=== PATIENT | female | born 1995 | race Caucasian/White ===

== ENCOUNTER 2017-01-26 16:39 | Emergency (ER) | payer OTHER ==
[~2017-01-26] VITALS: Ht 170.2 cm; Wt 70.9 kg
[~2017-01-26 16:39] MED LIST: ASCA500 PO; BIOT1TAB7 PO; CYAN10005 PO; IBUP-1050 PO
[2017-01-26 17:09] VITALS: TEMP 36.9; Ht 170.2 cm; Wt 70.9 kg
--- NOTE | 2017-01-26 17:34 | EMERGENCY ROOM VISIT NOTE ---
ED Visit Note First contact with patient: 17:28 CHIEF COMPLAINT: Foot pain HISTORY OF PRESENT ILLNESS: This 21-year-old female patient presents to the emergency department ambulatory complaining of swelling and pain in the left foot at rest and worse with weight bearing. The patient was jumping up and down 2 days ago and landed on her foot in a wrong position. The patient rates the pain as sharp and 3/10. The patient has no relief of the pain. The patient is able to walk. No numbness or weakness. No ankle pain. There are no lacerations of the foot. The patient is able to move all of their toes and their ankle without pain. Patient denies previous injury to this foot. REVIEW OF SYSTEMS: GENERAL: A 6 system review of systems was completed with positives and pertinent negatives in the HPI. ALLERGIES: No known drug allergies MEDICATIONS: None PMH: Hyperparathyroidism SOCIAL HISTORY: The patient is a student. PHYSICAL EXAM: Vital Signs: Reviewed Nurse's notes, vital signs stable. GENERAL : This is a 21-year-old female, in no acute distress, but appears in pain, well- developed, well-nourished. MUSCULOSKELETAL: There is no visual deformity of the left foot. There is no erythema but moderate ecchymosis. There is no warmth. There is tenderness and swelling over the dorsal aspect of the left foot. The range of motion of the foot is mildly limited secondary to pain. There is no tenderness over the plantar fascia. Dorsi flexion 5/5 and Plantar flexion 5/5. The skin is intact and there are no lacerations or puncture wounds. Dorsalis pedis pulse 2+. There is mild tenderness to palpation to the lateral malleolus. There is no obvious ankle deformity or significant edema. Capillary refill less than 2 seconds. EMERGENCY DEPARTMENT COURSE: I examined the patient. An X-ray of the left foot was reviewed by myself and radiology and reveals fifth metatarsal fracture. The patient was placed in a post-op shoe and instructed on the use of crutches. She was encouraged to contact orthopedics to schedule a follow-up appointment for further evaluation and management. The patient was discharged home in good condition. L ANKLE MIN 3 VIEWS ROUTINE, L FOOT MIN 3 VIEWS ROUTINE HISTORY: 21 years-old Female left ankle injury, pain acute left foot and ankle pain status post injury COMPARISON: None available TECHNIQUE: 3 views of the left foot and 3 views of left ankle FINDINGS: ANKLE: No acute fracture, dislocation or significant degenerative changes. Mild anterior soft tissue swelling. FOOT: There is an acute transverse fracture of the distal metaphyseal fifth metatarsal with apex lateral angulation of 13 degrees. No significant displacement. No intra-articular extension. Mild associated soft tissue swelling. IMPRESSION: 1. Acute mildly angulated fracture of the distal metaphyseal fifth metatarsal. 2. No acute bony abnormality of the left ankle. Current/Historical Medications No Active Prescriptions or Reported Meds Allergies Coded Allergies: No Known Allergies (Unverified , 01/26/17) Vital Signs Date Time Temp Pulse Resp B/P (MAP) Pulse Ox O2 Delivery O2 Flow Rate FiO2 01/26/17 18:47 62 16 122/87 100 01/26/17 17:09 36.9 65 16 130/79 100 Room Air Departure Information Impression Primary Impression: Fracture of fifth metatarsal bone Dispostion Home / Self-Care Condition GOOD Prescriptions No Active Prescriptions or Reported Meds Referrals No Doctor, Assigned (PCP) Beny Erwin DO Patient Instructions ED Fx Foot, [facility] Additional Instructions Motrin 600 mg every 6-8 hours for moderate pain Wear the postop shoe and use crutches without bearing weight on the left foot until seen by orthopedics Contact orthopedics in the morning to schedule a follow-up appointment for further evaluation and management Return to the emergency Department with any worsening symptoms Problem Qualifiers Primary Impression: Fracture of fifth metatarsal bone Encounter type: initial encounter Fracture type: closed Laterality: left
--- NOTE | 2017-01-26 18:06 | DIAGNOSTIC IMAGING REPORT ---
L ANKLE MIN 3 VIEWS ROUTINE, L FOOT MIN 3 VIEWS ROUTINE HISTORY: 21 years-old Female left ankle injury, pain acute left foot and ankle pain status post injury COMPARISON: None available TECHNIQUE: 3 views of the left foot and 3 views of left ankle FINDINGS: ANKLE: No acute fracture, dislocation or significant degenerative changes. Mild anterior soft tissue swelling. FOOT: There is an acute transverse fracture of the distal metaphyseal fifth metatarsal with apex lateral angulation of 13 degrees. No significant displacement. No intra-articular extension. Mild associated soft tissue swelling. IMPRESSION: 1. Acute mildly angulated fracture of the distal metaphyseal fifth metatarsal. 2. No acute bony abnormality of the left ankle. The above report was generated using voice recognition software. It may contain grammatical, syntax or spelling errors. Electronically signed by: Anand Edwards M.D. 01/26/2017 6:05 PM Dictated Date/Time: 01/26/2017 6:03 PM
[2017-01-26 18:47] VITALS: BP 122/87; PULSE 62; O2SAT 100
== END 2017-01-26 18:41 | disposition home or self-care (01) ==
LOC: C.EDB 16:41 → C.EDD 18:41
DX: S92.352A Displaced fracture of fifth metatarsal bone, left foot, initial encounter for closed fracture (principal); X50.9XXA Other and unspecified overexertion or strenuous movements or postures, initial encounter; E21.3 Hyperparathyroidism, unspecified